=== PATIENT | male | born 1975 | race Caucasian/White ===

== ENCOUNTER 2023-02-11 08:49 | Outpatient (AMB) | payer OTHER, SELFPAY ==
--- NOTE | 2023-02-11 10:22 | MHC.OFFWIV ---
Intake Vital Signs 02/11/23 10:28 Height 5 ft 10 in Weight 173 lb BMI 24.8 BP 170/90 H Blood Pressure Location Lt brachial Position Sitting Pulse 96 Pulse Source Pulse Oximeter Temp 98.0 F Pulse Oximetry (%) 99 Oxygen Delivery Method Room Air Intake Visit Reasons: EP Med refill/HTN Patient Tobacco Use Status: Never used Tobacco Allergies No Known Allergies Allergy (Verified 02/11/23 10:28) Medication List - Last Reconciled 02/11/23 by Gregory Drew MD amlodipine 5 mg PO DAILY 90 days metoprolol succinate ER 50 mg PO DAILY HPI EP Med refill/HTN HPI Details Patient is a 47-year-old gentleman came in today to have his blood pressure medication refilled Patient has not seen his primary care in 2 years. I have ordered labs for the patient he said he will do it in the morning Explained to patient that it is very important that he had labs done at least twice a year so we can continue to monitor side effects of the medications. He should also come in for routine follow-ups. His blood pressure is high today 170/90 as he is upset, as he thought his medications will not be filled. I have sent medications for 90 days patient has promised me that he will do labs in the morning. He has no chest pains no shortness of breath no swelling of ankles no nausea vomiting no headache. [facility] Medical History Family history of premature CAD Anxiety Family History Father Hypertension Mother Hypertension Social History Patient Tobacco Use Status: Never used Tobacco Review of Systems Const Denies chills and Denies fever(s) ENT Denies epistaxis and Denies nasal discharge Card Denies chest pain Resp Denies chest congestion, Denies cough and Denies hemoptysis GI Denies diarrhea and Denies nausea Skin/Breast Denies rash Neuro Reports no additional complaints Psych Reports no additional complaints Endo Reports no additional complaints Physical Exam Vital Signs: Last Vital Signs Temp 98.0 F 02/11/23 10:28 Pulse 96 02/11/23 10:28 BP 170/90 H 02/11/23 10:28 Pulse Ox 99 02/11/23 10:28 Oxygen Delivery Method Room Air 02/11/23 10:28 BMI result Body Mass Index 24.8 Const General: cooperative, comfortable and no acute distress Orientation/consciousness: patient oriented x3 HEENT Head: Yes normocephalic Eyes General: appearance normal, both eyes and all related structures Neck Other: Supple Neck: Yes supple Resp Effort & Inspection: normal respiratory effort, no cough and no stridor Cardio Rhythm: regular rhythm Heart sounds: S1 normal heart sound present and S2 normal heart sound present Skin General skin exam: turgor normal Neuro Other: Motor sensory intact General: patient oriented x3, tone normal and moves all extremities Extrem Other: No lower extremity swelling. Right lower extremity: no edema Left lower extremity: no edema Psych Other: Normal effect, speech clear Assessment & Plan Assessment & Plan (1) HTN (hypertension): Code(s): I10 - Essential (primary) hypertension Qualifiers: Hypertension type: primary hypertension Qualified Code(s): I10 - Essential (primary) hypertension Plan Patient is a 47-year-old gentleman came in today to have his blood pressure medication refilled Patient has not seen his primary care in 2 years. I have ordered labs for the patient he said he will do it in the morning Explained to patient that it is very important that he had labs done at least twice a year so we can continue to monitor side effects of the medications. He should also come in for routine follow-ups. His blood pressure is high today 170/90 as he is upset, as he thought his medications will not be filled. I have sent medications for 90 days patient has promised me that he will do labs in the morning. He has no chest pains no shortness of breath no swelling of ankles no nausea vomiting no headache. Orders: Orders TSH reflex Free T4 Today I10 - Essential (primary) hypertension Complete Blood Count Auto Diff Today I10 - Essential (primary) hypertension Comprehensive Met. Panel Today I10 - Essential (primary) hypertension LDL Cholesterol Direct Today I10 - Essential (primary) hypertension Medications: Refilled amlodipine 5 mg PO DAILY 90 tabs 0RF 90 days metoprolol succinate ER 50 mg PO DAILY 90 tabs 0RF I10 - Essential (primary) hypertension Coding Level of Care Code Est Pt Level 3 (17194) Diagnoses Primary hypertension I10 Hypertension type: primary hypertension
[2023-02-11 10:28] VITALS: BP 170/90; PULSE 96; TEMP 36.7; O2SAT 99; BMI 24.8
== END 2023-02-11 11:19 | disposition home or self-care (01) ==
PROVIDERS: PCP Nurse Practitioner Family; Visit Provider Internal Medicine
DX: I10 Essential (primary) hypertension (principal)
CPT/HCPCS: 99213

== ENCOUNTER 2023-04-06 15:57 | Outpatient (AMB) | payer OTHER, SELFPAY ==
[2023-04-06 16:26] VITALS: BP 150/94; PULSE 78; O2SAT 97; BMI 25.0
--- NOTE | 2023-04-06 16:26 | MHC.PC.OV ---
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 HTN: was on amlodipine 5mg and metoprolol 50mg Er. He reports stopping both of these meds because he had dizziness with these meds, the symptoms went away . Pt denies any CP, SOB, POOLE, or current dizziness. Pt reported being on these two meds for approx 3 years now, however. I will have him start his metoprolol at night and a lower dose of amlodipine in the am. Will have pt take his BP at home. He will follow up with me in 3 months, will have labs drawn, will refer for a colon screen. He reports his aunt had colon cancer. He reports never having a colon screen. He will call me if his BP is above 140/90 (daughter is a EMT). [facility] Medical History Family history of premature CAD Anxiety Family History Father Hypertension Mother Hypertension Social History Housing: House Patient Tobacco Use Status: Never used Tobacco e-Cigarette/Vaping Use: Never Used service: No Current occupational status: employed Current occupation: [employer] Cognitive needs: No Hearing needs: No Vision needs: No Questionnaire PHQ-9 Over the last 2 weeks, how often have you been bothered by any of the following problems? 1. Little interest or pleasure in doing things: not at all 2. Feeling down, depressed, or hopeless: not at all 3. Trouble falling or staying asleep, or sleeping too much: not at all 4. Feeling tired or having little energy: not at all 5. Poor appetite or overeating: not at all 6. Feeling bad about yourself - or that you are a failure or have let yourself or your family down: not at all 7. Trouble concentrating on things, such as reading the newspaper or watching television: not at all 8. Moving or speaking so slowly that other people could have noticed. Or the opposite - being so fidgety or restless that you have been moving around a lot more than usual: not at all 9. Thoughts that you would be better off or of hurting yourself in some way: not at all Total score: 0 Depression Screening Interpretation: Negative Depression Screening Done: Yes 85070 - PHQ-9 Billing: Yes Source: Developed by Drs. Paul Lewis, Dorota Ba, Erwin Arellano and colleagues, with an educational tracie from [employer]. Thrive Questionnaire Date Thrive assessed: 04/06/23 I am a: Patient What is your living situation today?: I have a steady place to live Within the past 12 months, did the food you bought not last and you didn't have the money to get more?: Never true Within the past 12 months, did you worry whether your food would run out before you got money to buy more?: Never true Do you have trouble paying for medicines?: No Do you have trouble getting transportation to medical appointments?: No Do you have trouble paying your heating and electricity bill?: No Do you have trouble taking care of your child, family member or friend?: No Do you have trouble with day-to-day activities such as bathing, preparing meals, shopping, managing finances, etc.?: No Are you currently unemployed and looking for a job?: No Are you interested in more education?: No AUDIT C Alcohol Use Questionnaire (AUDIT-C) 1. How often do you have a drink containing alcohol?: 2-4 times a month 2. How many drinks containing alcohol do you have on a typical day when you are drinking?: 1 or 2 3. How often do you have six or more drinks on one occasion?: Never Total Score: 2 Score Reviewed/Action Taken: No PATY-7 AMB Questionnaire PATY-7 Date PATY - 7 assessed: 04/06/23 Feeling nervous, anxious, or on edge: 0 = Not at all Not being able to stop or control worryin = Not at all Worrying too much about different things: 0 = Not at all Trouble relaxin = Not at all Being so restless that it is hard to sit still: 0 = Not at all Becoming easily annoyed or irritable: 0 = Not at all Feeling afraid as if something awful might happen: 0 = Not at all Total PATY-7 score (0-4 normal; 5-9 mild; 10-14 moderate; 15-21 severe): 0 Source: Developed by Drs. Paul Lewis, Dorota Ba, Erwin Arellano and colleagues, with an educational tracie from [employer]. PATY-7 Assessment Billing PATY-7 Assessment Tool: PATY-7 Assessment 26033 Physical exam (Primary Care) Vital Signs: Last Vital Signs Pulse 78 04/06/23 16:26 BP 150/94 H 04/06/23 16:26 Pulse Ox 97 04/06/23 16:26 Oxygen Delivery Method Room Air 04/06/23 16:26 BMI result Body Mass Index 25.0 Tobacco/Smoking Status: Tobacco use Status Tobacco use date assessed 04/06/23 04/06/23 16:31 Patient Tobacco Use Status Never used Tobacco 04/06/23 16:31 e-Cigarette/Vaping Use Never Used 04/06/23 16:31 PHQ-9: PHQ-9 Score PHQ-9: Total score 0 04/06/23 17:09 Depression Screening Interpretation: Negative Thrive Assessment: Date of Thrive Assessment Date Thrive assessed 04/06/23 04/06/23 17:09 Const General: cooperative Orientation/consciousness: patient oriented x3 HENMT Ears: TM's normal bilaterally Resp Effort & Inspection: normal respiratory effort Auscultation: clear to auscultation bilaterally Cardio Rate: regular rate Rhythm: regular rhythm Heart sounds: S1 normal heart sound present, S2 normal heart sound present and no murmurs Neuro General: patient oriented x3 Extrem Right lower extremity: no edema Left lower extremity: no edema Psych Appearance: grossly normal Mental Status: mental status grossly normal Speech and movement: Normal speech and movement present Affect: normal affect Attitude: cooperative Thought process: Normal thought process present Thought content: Normal thought content present Insight: Good insight present (Psych) Judgement: Good judgement present (Psych) Assessment and Plan Assessment & Plan (1) HTN (hypertension): Code(s): I10 - Essential (primary) hypertension Qualifiers: Hypertension type: primary hypertension Qualified Code(s): I10 - Essential (primary) hypertension Plan: restarting HTN meds, lower dose of amlodipine. (2) Family hx of colon cancer: Code(s): Z80.0 - Family history of malignant neoplasm of digestive organs Plan: referred Orders: Orders Comprehensive [place]. Panel Fast Today I10 - Essential (primary) hypertension TSH reflex Free T4 Today I10 - Essential (primary) hypertension UA CC w/rflx Micro + Cult Today I10 - Essential (primary) hypertension Complete Blood Count Auto Diff Today I10 - Essential (primary) hypertension Lipid Panel Today I10 - Essential (primary) hypertension Referrals Gastroenterology Referral Z80.0 - Family history of malignant neoplasm of digestive organs Medications: Changed From amlodipine 5 mg PO DAILY 90 days 90 tabs 0RF To amlodipine 2.5 mg PO DAILY 90 tabs 0RF 90 days Refilled metoprolol succinate ER 50 mg PO DAILY 90 tabs 0RF I10 - Essential (primary) hypertension Coding Level of Care Code New Pt Level 3 (01059) Diagnoses Primary hypertension I10 Hypertension type: primary hypertension Family hx of colon cancer Z80.0 Additional Codes PATY-7 Assessment Billing - PATY-7 Assessment Tool: PATY-7 Assessment 23206 ([id number])
== END 2023-04-06 17:57 | disposition home or self-care (01) ==
LOC: HO.HMGC 15:57
PROVIDERS: PCP Nurse Practitioner Family; Visit Provider Nurse Practitioner Family
DX: I10 Essential (primary) hypertension (principal); Z80.0 Family history of malignant neoplasm of digestive organs
CPT/HCPCS: 99203

== ENCOUNTER 2024-11-14 14:16 | Outpatient (AMB) | payer OTHER, SELFPAY ==
[2024-11-14 14:25] VITALS: BP 172/92; PULSE 92; TEMP 37.2; O2SAT 98; BMI 25.4
--- NOTE | 2024-11-14 14:25 | AM.OFFWIN_ITS ---
Intake Vital Signs 11/14/24 14:25 Height 5 ft 10 in Weight 177 lb BMI 25.4 BP 172/92 H Blood Pressure Location Lt brachial Position Sitting Pulse 92 Pulse Source Pulse Oximeter Temp 98.9 F Temp Source Oral Pulse Oximetry (%) 98 Oxygen Delivery Method Room Air Intake Visit Reasons: EP BP Meds. Intake Note: presents with need for BP med refill; metoprolol succinate 50mg, amlodipine 5mg- ran out of meds 2 days ago, denies any symptoms Patient Tobacco Use Status: Never used Tobacco Allergies No Known Allergies Allergy (Verified 11/14/24 14:27) Do you need a note to return to daycare/school/sports/work: No HPI HPI Comments History of Present Illness Details History of Present Illness - The patient is a 49-year-old male pres enting with a request for medication refill for hypertension management. - The patient has been prescribed amlodi pine 5 mg and metoprolol 50 mg for hypertension. - He reports running out of amlodipine o daniele a month ago and metoprolol yesterday. - The patient has not been taking amlodi pine due to missed appointments and has only been taking metoprolol at night. - Blood pressure was recorded at 172/92 mmHg during the visit, and the patient acknowledges not monitoring his blood pressure regularly at home. - He does get anxious when he comes to t he doctor's office and he has been under a lot of stress with his job. - He has an upcoming appt in Nov with pr s PCP. - He denies POOLE, visual changes, CP, SOB, or leg edema. Physical Exam General: Cooperative, healthy appearing, comfortable, no acute distress and well developed Orientation: Patient oriented x3 Eyes: Appearance normal, PERRLA, EOMI Respiratory: Normal respiratory effort and able to speak in complete sentences. Clear to auscultation bilaterally Cardiovascular: Regular rate and rhythm. Normal S1 and S2 Skin: No rashes or lesions noted Extremities: No edema noted. Patient was informed and verbally consented to the use of an ambient scribe for clinic note documentation during this visit. [facility] Medical History Family history of premature CAD Anxiety Family History Father Hypertension Mother Hypertension Social History Housing: House Patient Tobacco Use Status: Never used Tobacco e-Cigarette/Vaping Use: Never Used service: No Current occupational status: employed Current occupation: [employer] Cognitive needs: No Hearing needs: No Vision needs: No Review of Systems Const All systems reviewed & are unremarkable except as noted in HPI and below Physical Exam Vital Signs: Last Vital Signs Temp 98.9 F 11/14/24 14:25 Pulse 92 11/14/24 14:25 BP 172/92 H 11/14/24 14:25 Pulse Ox 98 11/14/24 14:25 Oxygen Delivery Method Room Air 11/14/24 14:25 BMI result Body Mass Index 25.4 Assessment & Plan Assessment & Plan (1) HTN (hypertension): Code(s): I10 - Essential (primary) hypertension Qualifiers: Hypertension type: primary hypertension Qualified Code(s): I10 - Essential (primary) hypertension Plan Most likely uncontrolled HTN due to bein out of his medications Plan - Advised a low salt diet - Refill prescriptions for amlodipine 5 mg and metoprolol 50 mg to manage hypertension. - Advise the patient to monitor blood pressure regularly at home and report any significant changes. - Recommend follow-up appointment to reassess blood pressure control and medication adherence Medications: New amlodipine 5 mg PO DAILY 90 tabs 0RF 90 days miscellaneous medical supply As directed 1 ea 0RF HTN miscellaneous medical supply adult blood pressure digital arm cuff 1 ea 0RF HTN Refilled metoprolol succinate ER 50 mg PO DAILY 90 tabs 2RF I10 - Essential (primary) hypertension Coding Level of Care Code Est Pt Level 3 (55718) Diagnoses Primary hypertension I10 Hypertension type: primary hypertension
== END 2024-11-14 15:11 | disposition home or self-care (01) ==
PROVIDERS: PCP Nurse Practitioner Family; Visit Provider Physician Assistant Medical
DX: I10 Essential (primary) hypertension (principal)